=== PATIENT | female | born 1940 | race Two or more races ===

== ENCOUNTER → 2017-06-29 | Emergency (ER) | payer OTHER ==
[~2017-06-29] VITALS: Ht 157.5 cm; Wt 56.7 kg
[~2017-06-29] MED LIST: ASA81 MG; HYDROCHLOROTHIA25 MG; HYZAAR 50-12.51 EACH
== END | disposition home or self-care (01) ==
LOC: ER 08:58
DX: M79.605 Pain in left leg (principal); I82.492 Acute embolism and thrombosis of other specified deep vein of left lower extremity

== ENCOUNTER 2021-05-23 10:34 | Outpatient (CLI) | payer OTHER | END 2021-05-23 10:44 | disposition home or self-care (01) | LOC: SONOGRAMA 10:34 | PROVIDERS: ATTEND Podiatrist Foot Surgery | DX: M72.2 Plantar fascial fibromatosis (principal) ==